=== PATIENT | female | born 1980 | race Two or more races ===

== ENCOUNTER → 2024-11-17 | Outpatient (CLI) | payer BC, MEDICAID, SELFPAY ==
[2024-11-17 12:50] LABS: Collection Type, Urine Clean Catch
--- NOTE | 2024-11-17 13:05 | XR_ITS ---
Examination: Sinus series 4 views TECHNIQUE: Blayne Locke lateral submentovertex sinus series 4 views Exam date and time: November 17, 2024 1342 hours INDICATIONS: Dizziness sinus pressure and pain 3 weeks. FINDINGS: Mild haziness in the frontal air cells Ethmoid air cells maxillary antra sphenoid air cells are clear Orbital rims appear intact IMPRESSION: Mild chronic frontal sinusitis
[2024-11-17 13:13] LABS: Basophils % (Auto) 0 % (0-2.5); Eosinophils # (Auto) 0.1 Thou/mm3 (0.0-0.5); Eosinophils % (Auto) 1 % (0-10); Hematocrit 41.1 % (36.0-46.0); Hemoglobin 13.9 g/dL (12.0-16.0); Immature Granulocytes % (Auto) 0 % (0-0); Immature Granulocytes Auto 0.02 Thou/mm3 (0.00-0.00); Lymphocytes # (Auto) 2.7 Thou/mm3 (1.0-4.8); Lymphocytes % (Auto) 32 % (10-50); Mean Corpuscular HGB Conc 33.8 g/dl (31.0-37.0); Mean Corpuscular Hemoglobin 30.9 pg (25.0-35.0); Mean Corpuscular Volume 91 fL (80-100); Monocytes # (Auto) 0.6 Thou/mm3 (0.0-0.8); Monocytes % (Auto) 7 % (0-12); Neutrophils % (Auto) 59 % (37-80); Nucleated Red Blood Cell % 0 /100 WBC (0); Platelet Count 332 Thou/mm3 (140-440); RDW Standard Deviation 40.7 fL (36.4-46.3); White Blood Count 8.4 Thou/mm3 (3.6-11.0)
[2024-11-17 13:23] LABS: T4 (Thyroxine) 10.4 mcg/dL (4.5-10.9); Vitamin D 25 Hydroxy Total 54.8 ng/mL (7.3-40.2)
[2024-11-17 13:31] LABS: Alanine Aminotransferase 11 U/L (10-49); Albumin, Serum 4.5 gm/dL (3.5-5.0); Albumin/Globulin Ratio 1.6 (1.2-2.2); Alkaline Phosphatase 91 U/L (46-116); Anion Gap 9 (7-16); Aspartate Amino Transferase 16 U/L (0-34); BUN/Creatinine Ratio 11 Ratio (12-20); Bilirubin,Total 0.9 mg/dL (0.3-1.2); Blood Urea Nitrogen 9 mg/dL (9-23); Calcium 9.7 mg/dL (8.3-10.6); Calcium (Corrected) 9.7 mg/dL (8.5-10.1); Carbon Dioxide 25.7 mMol/L (20.0-31.0); Cardiac Risk Estimate 3.5 RATIO (3.7-5.6); Chloride 106 mMol/L (98-107); Cholesterol 227 mg/dL (132-200); Creatinine (Component) 0.8 mg/dL (0.6-1.3); Globulin 2.8 gm/dL (2.3-3.5); Glucose 99 mg/dL (74-106); HDL Cholesterol 65 mg/dL (40-60); LDL Cholesterol,Calculated 145 mg/dL (0-130); Osmolality,Calculated 279 (275-295); Sodium 141 mMol/L (136-145); Total Protein 7.3 gm/dL (5.7-8.2); Triglycerides 83 mg/dL (30-150); eGFR > 60 See Note
[2024-11-17 14:01] LABS: Glucose Estimated Average 108 mg/dL (80-131); Hemoglobin A1C 5.4 % Hgb (4.8-6.0)
[2024-11-17 14:33] LABS: Bacteria,Urine 1+; Bilirubin,Urine Negative (Negative); Blood,Urine Negative (Negative); Color,Urine Yellow (Lt Yel-Yel); Glucose, Urine Negative (Negative); Ketones,Urine Negative (Negative); Leukocyte Esterase,Urine Positive (Negative); Nitrite,Urine Negative (Negative); Protein,Urine Trace (Neg - Trace); RBC,Urine 6 /hpf (0-3); Specific Gravity,Urine 1.025 (1.001-1.035); Squamous Epithelial Cell,Urine 6 /hpf (0-5); Urobilinogen,Urine Negative mg/dL (0.0-1.0); WBC,Urine 32 /hpf (0-5)
[2024-11-17 14:34] LABS: Clarity,Urine Hazy (Clear/Hazy); Culture Indicated,Urine Yes
== END | disposition home or self-care (01) ==
PROVIDERS: PCP Family Medicine; Referring Provider Physician Assistant; Visit Provider Physician Assistant
DX: J32.1 Chronic frontal sinusitis (principal); Z00.00 Encounter for general adult medical examination without abnormal findings; E78.5 Hyperlipidemia, unspecified; R30.0 Dysuria; H81.11 Benign paroxysmal vertigo, right ear; R42 Dizziness and giddiness; R51.9 Headache, unspecified; M79.10 Myalgia, unspecified site; J30.9 Allergic rhinitis, unspecified
CPT/HCPCS: 36415; 70220; 80053; 80061; 81001; 82306; 83036; 84436; 84443; 85025; 87077; 87086; 87186

== ENCOUNTER → 2025-03-02 | Outpatient (CLI) | payer BC, MEDICAID, SELFPAY ==
--- NOTE | 2025-03-02 10:17 | XR_ITS ---
Examination: Breast ultrasound, unilateral, right complete Date and time of exam: February 22, 2025 1030 hours INDICATIONS: Patient states right breast lump noticed this week Technique: Real-time kebede scale ultrasonographic imaging performed right breast including all 4 quadrants as well as nipple retroareolar and axillary region. Findings: Multiple breast cysts, the largest in the 2:00 position 11 x 6 mm No solid nodules IMPRESSION: BI-RADS Category 2: Benign findings
== END | disposition home or self-care (01) ==
LOC: CDIM 10:01
PROVIDERS: PCP Family Medicine; Referring Provider Family Medicine; Visit Provider Family Medicine
DX: N63.11 Unspecified lump in the right breast, upper outer quadrant (principal)
CPT/HCPCS: 76641

== ENCOUNTER → 2025-05-12 | Outpatient (CLI) | payer BC, MEDICAID, SELFPAY ==
[2025-05-12 17:04] LABS: Collection Type, Urine Clean Catch
[2025-05-12 17:30] LABS: Basophils # (Auto) 0.0 Thou/mm3 (0.0-0.2); Basophils % (Auto) 0 % (0-2.5); Eosinophils # (Auto) 0.1 Thou/mm3 (0.0-0.5); Eosinophils % (Auto) 2 % (0-10); Hematocrit 38.1 % (36.0-46.0); Hemoglobin 12.8 g/dL (12.0-16.0); Immature Granulocytes Auto 0.02 Thou/mm3 (0.00-0.00); Lymphocytes # (Auto) 2.7 Thou/mm3 (1.0-4.8); Lymphocytes % (Auto) 35 % (10-50); Mean Corpuscular HGB Conc 33.6 g/dl (31.0-37.0); Mean Corpuscular Hemoglobin 30.4 pg (25.0-35.0); Mean Corpuscular Volume 91 fL (80-100); Monocytes # (Auto) 0.6 Thou/mm3 (0.0-0.8); Monocytes % (Auto) 7 % (0-12); Neutrophils # (Auto) 4.4 Thou/mm3 (1.8-7.7); Neutrophils % (Auto) 56 % (37-80); Nucleated Red Blood Cell # 0.00 Thou/mm3 (0.00-0.00); Nucleated Red Blood Cell % 0 /100 WBC (0); Platelet Count 293 Thou/mm3 (140-440); RDW Standard Deviation 41.3 fL (36.4-46.3); Red Blood Count 4.21 Miln/mm3 (4.00-5.20); White Blood Count 7.8 Thou/mm3 (3.6-11.0)
[2025-05-12 17:33] LABS: Bilirubin,Urine Negative (Negative); Blood,Urine Negative (Negative); Clarity,Urine Clear (Clear/Hazy); Color,Urine Lt-Yellow (Lt Yel-Yel); Glucose, Urine Negative (Negative); Hyaline Casts,Urine < 1 /hpf (0-1); Ketones,Urine Negative (Negative); Leukocyte Esterase,Urine Negative (Negative); Nitrite,Urine Negative (Negative); PH,Urine 6.5 (5.0-7.0); Protein,Urine Negative (Neg - Trace); RBC,Urine 3 /hpf (0-3); Specific Gravity,Urine 1.028 (1.001-1.035); Squamous Epithelial Cell,Urine 2 /hpf (0-5); Urobilinogen,Urine Negative mg/dL (0.0-1.0); WBC,Urine 12 /hpf (0-5)
[2025-05-12 17:38] LABS: Culture Indicated,Urine Yes
[2025-05-12 18:36] LABS: HCG,Qualitative Serum Negative
[2025-05-12 19:27] LABS: Ferritin 28 ng/mL (7.3-270.7); Iron 58 mcg/dL (50-170)
[2025-05-12 19:37] LABS: Alanine Aminotransferase < 7 U/L (10-49); Albumin, Serum 4.3 gm/dL (3.5-5.0); Albumin/Globulin Ratio 1.7 (1.2-2.2); Alkaline Phosphatase 86 U/L (46-116); Amylase 74 U/L (30-118); Anion Gap 8 (7-16); Aspartate Amino Transferase 14 U/L (0-34); BUN/Creatinine Ratio 11 Ratio (12-20); Bilirubin,Total 0.3 mg/dL (0.3-1.2); Blood Urea Nitrogen 10 mg/dL (9-23); Calcium 9.1 mg/dL (8.3-10.6); Calcium (Corrected) 9.1 mg/dL (8.5-10.1); Carbon Dioxide 26.6 mMol/L (20.0-31.0); Chloride 106 mMol/L (98-107); Creatinine (Component) 0.9 mg/dL (0.6-1.3); Globulin 2.6 gm/dL (2.3-3.5); Glucose 103 mg/dL (74-106); Lipase 37 U/L (12-53); Osmolality,Calculated 280 (275-295); Potassium 3.7 mMol/L (3.4-5.1); Sodium 141 mMol/L (136-145); Thyroid Stimulating Hormone 1.19 uIU/mL (0.55-4.78); Total Protein 6.9 gm/dL (5.7-8.2); eGFR > 60 See Note
== END | disposition home or self-care (01) ==
PROVIDERS: PCP Physician Assistant; Referring Provider Physician Assistant; Visit Provider Physician Assistant
DX: N93.8 Other specified abnormal uterine and vaginal bleeding (principal); R10.9 Unspecified abdominal pain
CPT/HCPCS: 36415; 80053; 81001; 82150; 82728; 83540; 83690; 84443; 84703; 85025; 87077; 87086; 87186

== ENCOUNTER → 2025-07-15 | Outpatient (CLI) | payer BC, MEDICAID, SELFPAY ==
--- NOTE | 2025-07-15 09:45 | XR_ITS ---
Examination: Abdomen sonogram, complete Date and time of exam: July 15, 2025, 0947 hours INDICATIONS: Left flank pain beginning 2 months ago. Technique: Multiple real-time grayscale transabdominal sonographic images of the abdomen have been obtained. Findings: Normal gallbladder Normal common bile duct 0.2 cm Pancreatic head 2.4 cm Aorta not enlarged Liver 15.0 cm fatty infiltration Normal hepatopetal portal venous flow Patent IVC Right kidney 8.8 cm renal cortex 2.3 cm Left kidney 9.5 cm renal cortex 1.9 cm Mild renal scar formation Spleen 8.9 cm IMPRESSION: Normal gallbladder Normal common bile duct Liver normal size fatty infiltration
--- NOTE | 2025-07-15 09:45 | XR_ITS ---
Examination: Pelvic ultrasound, transabdominal, complete Technique: Transabdominal ultrasound of the pelvis performed using grayscale imaging Date and time of exam: July 15, 2025, 0930 hours INDICATIONS: Vaginal bleeding beginning 4 months ago, 10 mm involuting right ovarian follicular cyst on CT pelvis February 15, 2024 FINDINGS: Uterus 10.4 cm, 2.6 x 2.1 x 2.4 cm uterine body mass Right ovary 3.0 cm arterial flow, 9 mm follicular cyst Left ovary 3.3 cm arterial flow, 23 mm simple cyst Impression: 2.6 x 2.1 x 2.4 cm area fibroid degeneration body of the uterus
[2025-07-15 12:02] LABS: Urea Breath Test Negative (Negative)
== END | disposition home or self-care (01) ==
PROVIDERS: PCP Family Medicine; Referring Provider Physician Assistant; Visit Provider Physician Assistant
DX: K76.0 Fatty (change of) liver, not elsewhere classified (principal); D25.9 Leiomyoma of uterus, unspecified; N93.8 Other specified abnormal uterine and vaginal bleeding; R10.9 Unspecified abdominal pain
CPT/HCPCS: 76700; 76856; 83013; 83014

== ENCOUNTER → 2025-07-21 | Outpatient (CLI) | payer BC, MEDICAID, SELFPAY ==
--- NOTE | 2025-07-21 09:30 | XR_ITS ---
EXAMINATION: Upper GI series with KUB Fluoroscopy Esophagram standard 27 spot fluoroscopic films of the esophagus and stomach Date and time: July 21, 2025, 10:51 a.m. INDICATIONS: Heartburn 2 months TECHNIQUE AND FINDINGS: Keeper Helper AP supine abdomen demonstrates nonobstructive bowel gas pattern Patient swallowed thin barium 27 spot fluoroscopic films of the esophagus stomach duodenal bulb and duodenal sweep as well as small bowel Primary peristaltic esophageal waves noted Moderate intermittent gastroesophageal reflux. No stricture at the gastroesophageal junction No esophageal ulceration No gastric mass deformity or ulceration Duodenal bulb expands symmetrically no duodenal ulcer Small bowel visualized unremarkable IMPRESSION: Moderate intermittent gastroesophageal reflux, no stricture at the gastroesophageal junction No gastric mass deformity or ulceration No duodenal ulcer Fluoroscopy 0.1-minute radiation dose 54.84 mGy 27 spot fluoroscopic films
== END | disposition home or self-care (01) ==
PROVIDERS: PCP Physician Assistant; Referring Provider Family Medicine; Visit Provider Family Medicine
DX: K21.9 Gastro-esophageal reflux disease without esophagitis (principal)
CPT/HCPCS: 74240; A4649

== ENCOUNTER → 2025-07-21 | Outpatient (CLI) | payer BC, MEDICAID, SELFPAY ==
[2025-07-21 11:30] LABS: Syphilis Nonreactive (Nonreactive)
[2025-07-24 03:04] LABS: HCV RNA, PCR <15 NOT DETECTED IU/mL; HSV1 IgG Type Specific Ab 43.40 INDEX
[2025-07-24 07:48] LABS: HCV RNA, PCR Log IU <1.18 NOT DETECTED Log IU/mL; HIV Ag/Ab, 4th Gen NON-REACTIVE; HSV2 IgG Type Specific Ab <0.90 INDEX
== END | disposition home or self-care (01) ==
LOC: COPL 09:10
PROVIDERS: PCP Family Medicine; Referring Provider Obstetrics & Gynecology; Visit Provider Obstetrics & Gynecology
DX: Z20.2 Contact with and (suspected) exposure to infections with a predominantly sexual mode of transmission (principal)
CPT/HCPCS: 36415; 86695; 86696; 86780; 87389; 87522